=== PATIENT | male | born 1970 | race Caucasian/White ===

== ENCOUNTER 2022-04-29 10:08 | Outpatient (CLI) | payer BC ==
[~2022-04-29] VITALS: Ht 185.4 cm; Wt 92.5 kg
[2022-04-29] MEDS ORDERED: NF-BISOP5 PO (13:32)
== END 2022-04-29 13:34 | disposition home or self-care (01) ==
LOC: PREOP 10:08
PROVIDERS: ATTEND Internal Medicine
DX: Z01.818 Encounter for other preprocedural examination (principal)

== ENCOUNTER 2022-05-06 08:29 | Day surgery (SDC) | payer BC ==
--- NOTE | 2022-05-01 02:22 | HISTORY AND PHYSICAL ---
DATE OF SERVICE: COLONOSCOPY HISTORY AND PHYSICAL DATE OF ADMISSION: 05/06/2022 HISTORY OF PRESENT ILLNESS: The patient is a 51-year-old white male referred by Dr. Dru Richmond for screening colonoscopy. He is deemed to be of average risk as he is not aware of any family history for colon cancer. He denies bright red blood per rectum, melena, change in bowel habit or change in weight. PAST MEDICAL HISTORY: Significant for palpitations with well controlled on bisoprolol. He does not report a history of hypertension, syncope or cardiovascular disease. He is on no other prescription medication. PAST SURGICAL HISTORY: He has had three ventral and umbilical hernia repair surgeries in the past. FAMILY HISTORY: Mother is living at age 74 with diabetes. Father of what was felt to be gastric cancer at the age of 74. Brother and sister living alive and well. No known family history for colon cancer. 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 REVIEW OF SYSTEMS: CONSTITUTIONAL: Denies night sweats, chills, fever, change in weight. GASTROINTESTINAL: As noted in the HPI. PULMONARY: Denies cough, wheezing or shortness of breath. CARDIOVASCULAR: Denies orthopnea, PND, pedal edema or chest discomfort. PHYSICAL EXAMINATION: GENERAL: Reveals a pleasant white male, appears to be in no acute distress. VITAL SIGNS: Weight 204 pounds, blood pressure 110/70. HEENT: Unremarkable. Sclerae nonicteric. CHEST: Clear to auscultation. CARDIOVASCULAR: Reveals regular rate and rhythm without murmur, S3 or S4. ABDOMEN: Soft, supple without mass, organomegaly or tenderness. Well-healed midline incision starting at the navel that extending approximately 6 cm proximally. No bruits noted. Bowel sounds positive. EXTREMITIES: Reveal no cyanosis, clubbing or edema. ASSESSMENT AND PLAN: The patient is being set up for screening colonoscopy. Prep instructions were given, questions were answered, and electronic medical record was reviewed. I thank you for the referral of this pleasant gentleman. Job ID: [id number] DocumentID: [id number] Dictated Date: 04/21/2022 15:07:52 Vp Treasurer Date: 04/21/2022 15:27:01 Dictated By: CANDIE MORA MD
[~2022-05-06] VITALS: Ht 185 cm; Wt 92.5 kg
[~2022-05-06 08:29] MED LIST: NF-BISOP5 PO
[2022-05-06] MEDS ORDERED: LACTATED RINGERS 1,000 ML IV STA (08:34)
[2022-05-06 08:50] VITALS: BP 148/88
[2022-05-06] MEDS ORDERED: LACTATED RINGERS 1,000 ML IV ONE (08:53)
--- NOTE | 2022-05-06 09:03 | Pre-Op Note & Conscious Sedat ---
Pre-Operative Progress Note Date H&P Reviewed: May 06, 2022 Time H&P Reviewed: 09:03 History & Physical: H&P Reviewed, Patient Examed, No changes noted Pre-Op Diagnosis: screening Conscious Sedation Pre-Proced ASA Score 2 For ASA 3 and 4: Consider anesthesia and medical clearance. Also, for patients with a history of failed moderate sedation consider anesthesia. Airway Lungs Heart ASA score ASA 1: a normal healthy patient ASA 2: a patient with a mild systemic disease (mid diabetes, controlled hypertension, obesity ASA 3: a patient with a severe systemic disease that limits activity (angina, COPD, prior Myocardial infarction) ASA 4: a patient with an incapacitating disease that is a constant threat to life (CHF, renal failure) ASA 5: a moribund patient not expected to survive 24 hrs. (ruptured aneurysm) ASA 6: a declared brain- patient whose organs are being harvested. For emergent operations, add the letter E after the classification Mallampati Classification Grade 2 Sedation Plan Analgesia, Amnesia, Plan communicated to team members, Discussed options with patient/fam, Discussed risks with patient/fam The patient is an appropriate candidate to undergo the planned procedure, sedation, and anesthesia. The patient immediately re-assessed prior to indication. CANDIE MORA MD May 06, 2022 09:03
[2022-05-06] MEDS ORDERED: PROPOFOL INJECTION 50 ML IV ONE (09:29)
[2022-05-06] MEDS ORDERED: MIDAZOLAM 2 MG/2 ML (VERSED) VIAL ONE (09:29)
--- NOTE | 2022-05-06 10:01 | Progress Note-Post Operative ---
Post-Procedure Note Physician (s)/Hand Umbrella Tipper (s) Physician CANDIE MOAR MD Pre-Procedure Diagnosis Pre-Procedure Diagnosis: screening Post-Procedure Diagnosis Post-operative diagnosis: The patient was placed in the left lateral decubitus position. Prior to undergoing colonoscopy digital rectal evaluation was performed. Anal sphincter tone was normal and the perianal reflexes intact. No abnormalities are noted on digital inspection. The prostate appears to be quite small and flat no nodularity. the colonoscope was then inserted into the rectum and under direct visualization advanced to the cecum. The cecum was identified by identification of the ileocecal valve and the cecal strap. Photographic documentation was obtained. A careful inspection was made as the colonoscope was withdrawn. The quality of the prep was good. Findings: There are no evidence for internal or external hemorrhoids in the rectum was unremarkable. Present in the proximal sigmoid colon at 40 cm from the anal verge were 2 adjacent sessile adenomatous appearing polyps larger 1 measuring 8 mm in size smaller one 4 mm in size. Both were biopsied and ablated with no significant blood loss. The descending colon and splenic flexure transverse colon hepatic flexure ascending colon and cecum were unremarkable. Assessment: 2 adenomatous polyps were removed from the proximal sigmoid colon via hot forceps as noted above with no significant blood loss. Will await histopathology report before making recommendations for future surveillance colonoscopy. No other abnormalities are noted on today's colonoscopy. I thank you for the referral of this pleasant gentleman. Sincerely, CANDIE Marie MD, MD May 06, 2022 10:01
[2022-05-06 10:04] VITALS: BP 84/45
[2022-05-06 10:09] VITALS: BP 91/52
[2022-05-06 10:10] VITALS: BP 91/52
[2022-05-06 10:30] VITALS: BP 131/73
[2022-05-06 10:36] VITALS: BP 131/73
--- NOTE | 2022-05-06 11:11 | Anesthesia-General Post-Op ---
MAC Patient Condition Mental Status/LOC: Same as Preop Cardiovascular: Satisfactory Nausea/Vomiting: Absent Respiratory: Satisfactory Pain: Controlled Complications: Absent Post Op Complications Complications None Follow Up Care/Instructions Patient Instructions None needed. Anesthesiology Discharge Order Discharge Order Patient is doing well, no complaints, stable vital signs, no apparent adverse anesthesia problems. No complications reported per nursing. SARAH ADAIR CRNA May 06, 2022 11:11
== END 2022-05-06 10:37 | disposition home or self-care (01) ==
LOC: ENDO 08:29
PROVIDERS: ATTEND Internal Medicine
DX: Z12.11 Encounter for screening for malignant neoplasm of colon (principal); D12.5 Benign neoplasm of sigmoid colon; K63.5 Polyp of colon; R00.2 Palpitations; Z79.899 Other long term (current) drug therapy